=== PATIENT | male | born 1975 | race Hispanic/Latino ===

== ENCOUNTER 2017-07-22 10:01 | Emergency (ER) | payer MEDICAID ==
[2017-07-22 10:06] VITALS: BP 138/90; PULSE 92; RESP 18; TEMP 98.2; O2SAT 98
[2017-07-22] MEDS ORDERED: Venlafaxine 75 mg ER Cap PO STA (10:58)
--- NOTE | 2017-07-22 11:01 | C.PDOC ---
History Of Present Illness 42 year old male presents to the ED with complaints of nausea, lightheadedness, and feeling depressed. Patient states he ran out of his psychiatric medications approximately 3-4 days ago. He has a recent intake [place] [facility] [place] but was not given medications yet at that appointment. He has scheduled psychiatric appointment tomorrow. Patient denies vomiting, fever, chest pain, SOB, suicidal or homicidal ideations. Time Seen by Provider: 07/22/17 10:17 Chief Complaint (Nursing): Psychiatric Evaluation History Per: Patient History/Exam Limitations: no limitations Current Symptoms Are (Timing): Still Present Suicide/Self Injury Attempted (Context): None Severity: Mild Associated Symptoms: Depression. denies: Suicidal Thoughts, Suicidal Plan Involuntary Hold By: None Additional History Per: Other (Patient's case folder at [facility] [place] ) Past Medical History Reviewed: Historical Data, Nursing Documentation, Vital Signs Vital Signs: Last Vital Signs Temp 98.2 F 07/22/17 10:02 Pulse 92 H 07/22/17 10:02 Resp 18 07/22/17 10:02 BP 138/90 07/22/17 10:02 Pulse Ox 98 07/22/17 11:34 - Medical History PMH: Anxiety, Asthma, Bronchitis, Depression Family History: States: No Known Family Hx - Social History Hx Alcohol Use: No Hx Substance Use: Yes - Immunization History Hx Tetanus Toxoid Vaccination: No Hx Influenza Vaccination: (unk) Hx Pneumococcal Vaccination: (unk) Review Of Systems Except As Marked, All Systems Reviewed And Found Negative. Constitutional: Negative for: Fever, Chills Cardiovascular: Negative for: Chest Pain, Palpitations Respiratory: Negative for: Cough, Shortness of Breath Gastrointestinal: Positive for: Nausea. Negative for: Vomiting, Abdominal Pain , Diarrhea Neurological: Positive for: Other (lightheadedness ) Psych: Positive for: Depression. Negative for: Suicidal ideation Physical Exam - Physical Exam Appears: Well, Non-toxic, No Acute Distress Skin: Warm, Dry Head: Normacephalic Eye(s): bilateral: Normal Inspection, PERRL, EOMI Oral Mucosa: Moist Neck: Supple Cardiovascular: Rhythm Regular Respiratory: Normal Breath Sounds, No Rales, No Rhonchi, No Wheezing Gastrointestinal/Abdominal: Normal Exam, Bowel Sounds, Soft, No Tenderness Extremity: Normal ROM, No Tenderness Neurological/Psych: Oriented x3, Other (Flat Affect ) Gait: Steady ED Course And Treatment O2 Sat by Pulse Oximetry: 98 (room air ) Pulse Ox Interpretation: Normal Progress Note: Patient's case folder, Marci, was contacted regarding the patient's current psychiatric medications. Patient's medications are: Buspar 5mg TID, Seoquel 100 mg daily, Venlafaxine 75 mg TID, and Escitalcpram 10 mg daily. Patient was given PO Buspar, Lexapro, Seroquel, and Effexor doses in the ED, and rxs for several days. He was instructed to follow up with psychiatrist tomorrow as scheduled without fail. He understands he should return to ED immediately if he has any concerning symptoms. Reevaluation Time: 11:30 Reassessment Condition: Improved Disposition Counseled Patient/Family Regarding: Diagnosis, Need For Followup, Rx Given - Disposition Referrals: [facility] [Outside] [facility] [Outside] Disposition: HOME/ ROUTINE Disposition Time: 11:30 Condition: STABLE Additional Instructions: FOLLOW UP TOMORROW AT YOUR SCHEDULED PSYCHIATRIC APPOINTMENT RETURN TO ER IF YOU HAVE ANY CONCERNING SYMPTOMS Prescriptions: busPIRone [Buspar] 5 mg PO TID #15 tab Escitalopram [Lexapro] 10 mg PO DAILY #5 tab QUEtiapine [SEROquel] 100 mg PO HS #5 tab Venlafaxine [Effexor XR] 75 mg PO TID #15 cer Instructions: Medicine Refill (ED) Forms: [email or web address] (Persian) Print Language: EGYPTIAN - POA Present On Arrival: None - Clinical Impression Clinical Impression: Medication refill, Depression - Scribe Statement The provider has reviewed the documentation as recorded by the Scribsteffi Ag All medical record entries made by the Melidaibsteffi were at my direction and personally dictated by me. I have reviewed the chart and agree that the record accurately reflects my personal performance of the history, physical exam, medical decision making, and the department course for this patient. I have also personally directed, reviewed, and agree with the discharge instructions and disposition.
[2017-07-23] MEDS ORDERED: Venlafaxine 37.5 mg ER Cap PO ONE (11:23)
== END 2017-07-22 11:40 | disposition home or self-care (01) ==
LOC: C.ER 10:01
DX: Z76.0 Encounter for issue of repeat prescription (principal); F32.9 Major depressive disorder, single episode, unspecified